=== PATIENT | female | born 1960 | race American Indian/Alaskan Native ===

== ENCOUNTER 2022-07-03 17:55 | Inpatient (IN) | payer MEDICAID ==
[2022-07-04 01:04] LABS: Basophils # (Auto) 0.1 K/mm3 (0.0-0.1); Basophils % (Auto) 0.5 % (0.0-1.8); Eosinophils # (Auto) 0.3 K/mm3 (0.0-0.4); Eosinophils % (Auto) 2.9 % (0.0-4.3); Hematocrit 31.1 % (30.3-42.9); Hemoglobin 10.3 gm/dl (10.1-14.3); Lymphocytes % (Auto) 20.8 % (13.4-35.0); Mean Corpuscular HGB Conc 33 % (30-34); Mean Corpuscular Volume 86 fl (79-97); Monocytes # (Auto) 1.1 K/mm3 (0.0-0.8); Monocytes % (Auto) 10.9 % (0.0-7.3); Platelet Count 261 K/mm3 (140-440); Red Blood Count 3.62 M/mm3 (3.65-5.03); Red Cell Distribution Width 15.2 % (13.2-15.2)
[2022-07-04 01:24] LABS: Hepatitis B Surface Antigen Non-Reactive (Negative); Hepatitis C Virus Antibody Non-Reactive (NonReactive)
[2022-07-04 02:24] LABS: Alanine Aminotransferase 9 units/L (7-56); Albumin 3.1 g/dL (3.9-5); Blood Urea Nitrogen 18 mg/dL (7-17); Calcium 8.6 mg/dL (8.4-10.2); HDL Cholesterol 58 mg/dL (40-59); Hemolysis Index 18; LDL Cholesterol,Direct 70 mg/dL (50-130)
[2022-07-04 02:28] LABS: BUN/Creatinine Ratio 26
--- NOTE | 2022-07-04 07:56 | History and Physical Report ---
GP History & Physical - History of Present Illness Date of admission: 07/03/22 Date of Examination: 07/04/22 Reason for Admission: Danger to self, Danger to others, Failure of Outpatient Treatment History of Present Illness: The patient is a 62 year old female with history of bipolar and schizophrenia who was admitted for stabilization. The patient presented to the ED with acute psychosis; the notes states that the patient was sent from [facility] due to psychosis and insomnia for several days with expression of suicidal thoughts. The patient was seen today. The patient presents with cognitive delay hence difficult to gather information. The patient was observed responding to internal stimuli. PAST PSYCHIATRIC HISTORY: Unable to assess PAST MEDICAL HISTORY: Unable to obtain Family Psychiatric History Unable to obtain SOCIAL HISTORY Unable to assess REVIEW OF SYSTEMS Unable to obtain MENTAL STATUS Unable to obtain Diagnoses: Schizophrenia Treatment Plan Patient will be admitted for inpatient psychiatric evaluation, medication adjustment and close monitoring The patient's behavior, mood, sleep and appetite will be closely monitored. Patient will be enrolled in individual and group therapeutic sessions and encouraged to attend. Patient will be provided with a safe and structured environment. Patient's physical health needs will be addressed by the Hospitalist. Hospitalist Consulted Labs including CBC, CMP, Lipid profile and Hemoglobin A1C ordered Social Assessment will be completed and the Air Conditioning Service Technician will work with patient and family to ensure a suitable and safe disposition Medication adjustment will be made as clinically indicated Restarted home meds Usual Wellness Nondenominational/Preservation: The patient agreed on the treatment plan, understood the risk, benefit, alternative treatment, potential consequence of no treatment, and gave informed consent. LOS 7 days Case staffed with Dr. Alex Legal Status: Voluntary Reaction to Hospitalization: Accepting Medications and Allergies Medications and Allergies Allergies Allergy/AdvReac Type Severity Reaction Status Date / Time lithium Allergy Unknown Verified 07/03/22 22:46 Home Medications Medication Instructions Recorded Confirmed Last Taken Type amLODIPine [Norvasc] 10 mg PO DAILY 08/25/13 07/04/22 Unknown History AtorvaSTATin [Lipitor] 10 mg PO QHS 07/04/22 07/04/22 Unknown History Benztropine [Cogentin] 2 mg PO DAILY 07/04/22 07/04/22 Unknown History Divalproex [Ray Aponte] 250 mg PO DAILY 07/04/22 07/04/22 Unknown History Divalproex [Ray Aponte] 500 mg PO HS 07/04/22 07/04/22 Unknown History Loratadine [Claritin] 10 mg PO DAILY 07/04/22 07/04/22 Unknown History Metoprolol Xl [Metoprolol 50 mg PO DAILY 07/04/22 07/04/22 Unknown History SUCCINATE ER TAB] PARoxetine [Paxil] 20 mg PO DAILY 07/04/22 07/04/22 Unknown History Pantoprazole [Protonix TAB] 40 mg PO DAILY 07/04/22 07/04/22 Unknown History Trazodone HCl 150 mg PO HS 07/04/22 07/04/22 Unknown History Ziprasidone [Geodon] 20 mg PO DAILY 07/04/22 07/04/22 Unknown History haloperidoL [Haldol] 2 mg PO BID 07/04/22 07/04/22 Unknown History lisinopriL [Lisinopril] 20 mg PO DAILY 07/04/22 07/04/22 Unknown History Results - Results Labs/Vitals: Laboratory Last Values WBC 9.7 K/mm3 (4.5-11.0) 07/04/22 00:27 RBC 3.62 M/mm3 (3.65-5.03) L 07/04/22 00:27 Hgb 10.3 gm/dl (10.1-14.3) 07/04/22 00:27 Hct 31.1 % (30.3-42.9) 07/04/22 00:27 MCV 86 fl (79-97) 07/04/22 00:27 MCH 28 pg (28-32) 07/04/22 00:27 MCHC 33 % (30-34) 07/04/22 00:27 RDW 15.2 % (13.2-15.2) 07/04/22 00:27 Plt Count 261 K/mm3 (140-440) 07/04/22 00:27 Lymph % (Auto) 20.8 % (13.4-35.0) 07/04/22 00:27 [place] % (Auto) 10.9 % (0.0-7.3) H 07/04/22 00:27 Eos % (Auto) 2.9 % (0.0-4.3) 07/04/22 00:27 Baso % (Auto) 0.5 % (0.0-1.8) 07/04/22 00:27 Lymph # (Auto) 2.0 K/mm3 (1.2-5.4) 07/04/22 00:27 [place] # (Auto) 1.1 K/mm3 (0.0-0.8) H 07/04/22 00:27 Eos # (Auto) 0.3 K/mm3 (0.0-0.4) 07/04/22 00:27 Baso # (Auto) 0.1 K/mm3 (0.0-0.1) 07/04/22 00:27 Seg Neutrophils % 64.9 % (40.0-70.0) 07/04/22 00: Seg Neutrophils # 6.3 K/mm3 (1.8-7.7) 07/04/22 00:27 Sodium 135 mmol/L (137-145) L 07/04/22 00:27 Potassium 4.3 mmol/L (3.6-5.0) 07/04/22 00: Chloride 100.1 mmol/L (98-107) 07/04/22 00: Carbon Dioxide 25 mmol/L (22-30) 07/04/22 00:27 Anion Gap 14 mmol/L 07/04/22 00:27 BUN 18 mg/dL (7-17) H 07/04/22 00:27 Creatinine 0.7 mg/dL (0.6-1.2) 07/04/22 00:27 Estimated GFR > 60 ml/min 07/04/22 00:27 BUN/Creatinine Ratio 26 % 07/04/22 00: Glucose 128 mg/dL (65-100) H 07/04/22 00:27 Hemoglobin A1c 6.2 % (4-6) H 07/04/22 00:27 Calcium 8.6 mg/dL (8.4-10.2) 07/04/22 00:27 Total Bilirubin 0.20 mg/dL (0.1-1.2) 07/04/22 00:27 AST 12 units/L (5-40) 07/04/22 00:27 ALT 9 units/L (7-56) 07/04/22 00:27 Alkaline Phosphatase 55 units/L (35-129) 07/04/22 00:27 Total Protein 6.0 g/dL (6.3-8.2) L 07/04/22 00:27 Albumin 3.1 g/dL (3.9-5) L 07/04/22 00:27 Albumin/Globulin Ratio 1.1 % 07/04/22 00:27 Triglycerides 53 mg/dL (2-149) 07/04/22 00:27 Cholesterol 145 mg/dL (50-199) 07/04/22 00:27 LDL Cholesterol Direct 70 mg/dL (50-130) 07/04/22 00:27 HDL Cholesterol 58 mg/dL (40-59) 07/04/22 00:27 Cholesterol/HDL Ratio 2.50 % 07/04/22 00:27 TSH 4.320 mlU/mL (0.270-4.200) H 07/04/22 00:27 Hepatitis A IgM Ab Non-reactive (NonReactive) 07/04/22 00: Hep Bs Antigen Non-reactive (Negative) 07/04/22 00: Hep B Core IgM Ab Non-reactive (NonReactive) 07/04/22 00:27 Hepatitis C Antibody Non-reactive (NonReactive) 07/04/22 00:27 Last Vital Signs Temp 97.5 F L 07/03/22 22:43 Pulse 63 07/03/22 22:43 Resp 18 07/03/22 22:43 BP 145/73 07/03/22 22:43 Pulse Ox 95 07/03/22 22:43 Physical Examination - Constitutional Vitals: Vital Signs Temp Pulse Resp BP Pulse Ox 97.5 F L 63 18 145/73 95 07/03/22 22:43 07/03/22 22:43 07/03/22 22:43 07/03/22 22:43 07/03/22 22:43 Temperature -Last 24 Hours Temperature 97.5 F Mental Status Exam - Vital signs Last Vital Signs Temp 97.5 F L 07/03/22 22:43 Pulse 63 07/03/22 22:43 Resp 18 07/03/22 22:43 BP 145/73 07/03/22 22:43 Pulse Ox 95 07/03/22 22:43 Physician Certification - Certification Statement Physician Certification Statement: This is an acknowledgement statement that ARETHA VIEYRA is a 62 year old F who requires inpatient psychiatric admission for treatment which could reasonably be expected to improve the patient's condition for Estimated period of time patient will need to remain in the hospital: [ ] Plan for post-hospital care: [ ]
[2022-07-04] MEDS ORDERED: LORATADINE 10 MG PO SCH (10:00)
--- NOTE | 2022-07-04 10:38 | Consultation ---
History of Present Illness - Reason for Consult Consult date: 07/03/22 [facility] Requesting physician: LAURI BELTRAN - History of Present Illness 62 YO Female with Vascular Dementia with behavioral disturbance, Cerebral Atherosclerosis, HTN, HLD, Obesity Hypoventilation Syndrome, GERD, Schizophrenia, Bipolar Disorder admitted to [facility] for psychiatric stabilization. Patient seen and evaluated in patient room. Patient denies fever, chills, chest pain, palpitation, adductive cough, skin rash and recent contact, no supportive COVID-19. Patient appears to be at baseline level of cognition and function. No reported nursing events. Past History Past Medical History: GERD, hypertension, hyperlipidemia, other (See HPI) Past Surgical History: No surgical history, Other (Reviewed) Social history: single. denies: smoking, alcohol abuse Family history: diabetes, hypertension Medications and Allergies Allergies Allergy/AdvReac Type Severity Reaction Status Date / Time lithium Allergy Unknown Verified 07/03/22 22:46 Home Medications Medication Instructions Recorded Confirmed Last Taken Type amLODIPine [Norvasc] 10 mg PO DAILY 08/25/13 07/04/22 Unknown History AtorvaSTATin [Lipitor] 10 mg PO QHS 07/04/22 07/04/22 Unknown History Benztropine [Cogentin] 2 mg PO DAILY 07/04/22 07/04/[address] Agusto Aponte] 250 mg PO DAILY 07/04/22 07/04/[address] Agusto Aponte] 500 mg PO HS 07/04/22 07/04/22 Unknown History Loratadine [Claritin] 10 mg PO DAILY 07/04/22 07/04/22 Unknown History Metoprolol Xl [Metoprolol 50 mg PO DAILY 07/04/22 07/04/22 Unknown History SUCCINATE ER TAB] PARoxetine [Paxil] 20 mg PO DAILY 07/04/22 07/04/22 Unknown History Pantoprazole [Protonix TAB] 40 mg PO DAILY 07/04/22 07/04/22 Unknown History Trazodone HCl 150 mg PO HS 07/04/22 07/04/22 Unknown History Ziprasidone [Geodon] 20 mg PO DAILY 07/04/22 07/04/22 Unknown History haloperidoL [Haldol] 2 mg PO BID 08/06/22 08/06/22 Unknown History lisinopriL [Lisinopril] 20 mg PO DAILY 07/04/22 07/04/22 Unknown History Active Meds: Active Medications Amlodipine Besylate (Amlodipine 10 Mg Tab) 10 mg PO DAILY [facility] Atorvastatin Calcium (Atorvastatin 10 Mg Tab) 10 mg PO QHS [facility] Benztropine Mesylate (Benztropine 2 Mg Tab) 2 mg PO DAILY [facility] Cetirizine HCl (Cetirizine 10 Mg Tab) 10 mg PO DAILY [facility] Divalproex Sodium (Divalproex Dr 250 Mg Tab) 250 mg PO DAILY [facility] Divalproex Sodium (Divalproex Dr 500 Mg Tab) 500 mg PO HS [facility] Haloperidol (Haloperidol 2 Mg Tab) 2 mg PO BID [facility] Lisinopril (Lisinopril 20 Mg Tab) 20 mg PO DAILY [facility] Pantoprazole Sodium (Pantoprazole 40 Mg Tab) 40 mg PO DAILY [facility] Paroxetine HCl (Paroxetine 20 Mg Tab) 20 mg PO DAILY [facility] Trazodone HCl (Trazodone 100 Mg Tab) 100 mg PO QHS [facility] Trazodone HCl (Trazodone 50 Mg Tab) 50 mg PO QHS [facility] Review of Systems Constitutional: no weight loss Ears, nose, mouth and throat: no ear pain, no ear discharge, no tinnitis, no d ecreased hearing, no nose pain Breasts: no change in shape, no swelling, no mass Cardiovascular: no chest pain, no orthopnea, no palpitations, no rapid/irregular heart beat, no edema Respiratory: no cough, no cough with sputum, no hemoptysis Gastrointestinal: no nausea, no constipation, no change in bowel habits Genitourinary Female: no dysuria, no urinary frequency, no urgency Rectal: no pain, no incontinence, no bleeding Musculoskeletal: no neck stiffness, no shooting arm pain, no arm numbness/tingling Integumentary: no rash, no pruritis, no redness Neurological: no head injury, no transient paralysis, no paralysis, no parathesias Psychiatric: difficulties concentrating, irritability, sadness/tearfullness, mood swings, no anxiety Endocrine: no cold intolerance, no heat intolerance, no polyphagia, no excessive thirst, no polydipsia, no polyuria Hematologic/Lymphatic: no easy bruising, no easy bleeding Allergic/Immunologic: no urticaria, no allergic rhinitis, no wheezing Exam - Constitutional Vitals: Temp Pulse Resp BP Pulse Ox 98.4 F 74 18 143/110 98 07/04/22 08:43 07/04/22 08:43 07/04/22 08:43 07/04/22 08:43 07/04/22 08:43 General appearance: Present: no acute distress, obese - EENT Eyes: Present: PERRL ENT: hearing intact, clear oral mucosa - Neck Neck: Present: supple, normal ROM - Respiratory Respiratory effort: normal Respiratory: bilateral: CTA - Cardiovascular Heart Sounds: Present: S1 & S2. Absent: rub, click - Extremities Extremities: pulses symmetrical, No edema Peripheral Pulses: within normal limits - Abdominal General gastrointestinal: Present: soft, non-tender, non-distended, normal bowel sounds Female genitourinary: Present: normal - Integumentary Integumentary: Present: clear, warm, dry - Musculoskeletal Musculoskeletal: gait normal, strength equal bilaterally - Psychiatric Psychiatric: appropriate mood/affect, intact judgment & insight - Neurologic Neurologic: CNII-XII intact, moves all extremities Results - Labs CBC & Chem 7: 07/04/22 00:27 07/04/22 00:27 Labs: Abnormal lab results 07/04/22 07/04/22 07/04/22 Range/Units 00:27 00:27 00:27 RBC 3.62 L (3.65-5.03) M/mm3 [place] % (Auto) 10.9 H (0.0-7.3) % [place] # (Auto) 1.1 H (0.0-0.8) K/mm3 Sodium 135 L (137-145) mmol/L BUN 18 H (7-17) mg/dL Glucose 128 H (65-100) mg/dL Hemoglobin A1c 6.2 H (4-6) % Total Protein 6.0 L (6.3-8.2) g/dL Albumin 3.1 L (3.9-5) g/dL TSH (0.270-4.200) mlU/mL 07/04/22 Range/Units 00:27 RBC (3.65-5.03) M/mm3 [place] % (Auto) (0.0-7.3) % [place] # (Auto) (0.0-0.8) K/mm3 Sodium (137-145) mmol/L BUN (7-17) mg/dL Glucose (65-100) mg/dL Hemoglobin A1c (4-6) % Total Protein (6.3-8.2) g/dL Albumin (3.9-5) g/dL TSH 4.320 H (0.270-4.200) mlU/mL Assessment and Plan - Patient Problems (1) Vascular dementia with behavioral disturbance Current Visit: Yes Status: Acute Plan to address problem: For vomiting, verbal redirection, benzodiazepine therapy as clinically indicated. (2) Cerebral atherosclerosis Current Visit: Yes Status: Acute Plan to address problem: Risk factor reduction, antiplatelet therapy as clinically indicated, supportive care (3) Hypertension Current Visit: Yes Status: Acute Qualifiers: Hypertension type: primary hypertension Qualified Code(s): I10 - Essential (primary) hypertension Plan to address problem: Monitor blood pressure every shift, continue medical management. (4) Hyperlipidemia Current Visit: Yes Status: Acute Qualifiers: Hyperlipidemia type: mixed hyperlipidemia Qualified Code(s): E78.2 - Mixed hyperlipidemia Plan to address problem: Statin therapy, low-cholesterol diet, risk factor reduction. (5) Obesity hypoventilation syndrome Current Visit: Yes Status: Acute Plan to address problem: Weight reduction, outpatient pulmonary follow-up for sleep study. (6) Bipolar disorder Current Visit: Yes Status: Acute Plan to address problem: Continue medical management, supportive care. (7) Schizophrenia Current Visit: Yes Status: Acute Plan to address problem: Continue medical management, supportive care. (8) Major depression Current Visit: Yes Status: Acute Plan to address problem: Continue medical management, supportive care. (9) Advance care planning Current Visit: Yes Status: Acute Plan to address problem: Disease education done, care plan discussed, diagnoses discussed, prognosis discussed, patient is full code. Patient knowledges understanding and agreement with care plan, +30 minutes. (10) Preventative health care Current Visit: Yes Status: Acute Plan to address problem: Patient counseled regarding weight reduction, increase physical activity discharge, outpatient follow-up with primary care physician for all age and risk factor appropriate screening test. Outpatient follow-up with FACTORY FOCUS TECHNICIAN service for all age and risk factor related screening test. +30 minutes.
[2022-07-04] MEDS: DIVALPROEX DR 250 MG TAB PO SCH (11:00)
[2022-07-04] MEDS: amLODIPine 10 MG TAB PO SCH (11:01)
[2022-07-04] MEDS: CETIRIZINE 10 MG TAB PO SCH (11:01)
[2022-07-04] MEDS: PANTOPRAZOLE 40 MG TAB PO SCH (11:01)
[2022-07-04] MEDS: HALOPERIDOL 2 MG TAB PO SCH ×2 (11:01→22:10)
[2022-07-04] MEDS: PARoxetine 20 MG TAB PO SCH (11:02)
[2022-07-04] MEDS: LISINOPRIL 20 MG TAB PO SCH (11:02)
[2022-07-04] MEDS: BENZTROPINE 2 MG TAB PO SCH (11:02)
[2022-07-04] MEDS ORDERED: NON-FORMULARY EACH (Trazodone Hcl [Trazodone Hcl] 150 MG Tablet) PO SCH (22:00)
[2022-07-04] MEDS: traZODone 100 MG TAB PO SCH (22:10)
[2022-07-04] MEDS: DIVALPROEX DR 500 MG TAB PO SCH (22:10)
[2022-07-04] MEDS: traZODone 50 MG TAB PO SCH (22:38)
[2022-07-05] MEDS: PARoxetine 20 MG TAB PO SCH (09:00)
[2022-07-05] MEDS: BENZTROPINE 2 MG TAB PO SCH (09:00)
[2022-07-05] MEDS: LISINOPRIL 20 MG TAB PO SCH (09:00)
[2022-07-05] MEDS: DIVALPROEX DR 250 MG TAB PO SCH (09:00)
[2022-07-05] MEDS: HALOPERIDOL 2 MG TAB PO SCH ×2 (09:00→21:47)
[2022-07-05] MEDS: PANTOPRAZOLE 40 MG TAB PO SCH (09:00)
[2022-07-05] MEDS: amLODIPine 10 MG TAB PO SCH (09:01)
[2022-07-05] MEDS: CETIRIZINE 10 MG TAB PO SCH (09:01)
--- NOTE | 2022-07-05 09:38 | Progress Note ---
Subjective Date of service: 07/05/22 Subjective Comment: 07/05: The patient was seen at breakfast. She is confused and was observed responding to internal stimuli. She reports sleep and appetite as good. REVIEW OF SYSTEMS Unable to obtain MENTAL STATUS Unable to obtain Diagnoses: Schizophrenia Treatment Plan Patient will be admitted for inpatient psychiatric evaluation, medication adjustment and close monitoring The patient's behavior, mood, sleep and appetite will be closely monitored. Patient will be enrolled in individual and group therapeutic sessions and encouraged to attend. Patient will be provided with a safe and structured environment. Patient's physical health needs will be addressed by the Hospitalist. Hospitalist Consulted Labs including CBC, CMP, Lipid profile and Hemoglobin A1C ordered Social Assessment will be completed and the Jukebox Checker will work with patient and family to ensure a suitable and safe disposition Medication adjustment will be made as clinically indicated Restarted home meds Usual Wellness Hoahaoism/Preservation: The patient agreed on the treatment plan, understood the risk, benefit, alternative treatment, potential consequence of no treatment, and gave informed consent. LOS 7 days Case staffed with Dr. Alex Legal Status: Voluntary Reaction to Hospitalization: Accepting Medications and Allergies Medications and Allergies Allergies Allergy/AdvReac Type Severity Reaction Status Date / Time lithium Allergy Unknown Verified 07/03/22 22:46 Home Medications Medication Instructions Recorded Confirmed Last Taken Type amLODIPine [Norvasc] 10 mg PO DAILY 08/25/13 07/04/22 Unknown History AtorvaSTATin [Lipitor] 10 mg PO QHS 07/04/22 07/04/22 Unknown History Benztropine [Cogentin] 2 mg PO DAILY 07/04/22 07/04/[address] Agusto Aponte] 250 mg PO DAILY 07/04/22 07/04/[address] Agusto Aponte] 500 mg PO HS 07/04/22 07/04/22 Unknown History Loratadine [Claritin] 10 mg PO DAILY 07/04/22 07/04/22 Unknown History Metoprolol Xl [Metoprolol 50 mg PO DAILY 07/04/22 07/04/22 Unknown History SUCCINATE ER TAB] PARoxetine [Paxil] 20 mg PO DAILY 07/04/22 07/04/22 Unknown History Pantoprazole [Protonix TAB] 40 mg PO DAILY 07/04/22 07/04/22 Unknown History Trazodone HCl 150 mg PO HS 07/04/22 07/04/22 Unknown History Ziprasidone [Geodon] 20 mg PO DAILY 07/04/22 07/04/22 Unknown History haloperidoL [Haldol] 2 mg PO BID 07/04/22 07/04/22 Unknown History lisinopriL [Lisinopril] 20 mg PO DAILY 07/04/22 07/04/22 Unknown History Active Meds: Active Medications Amlodipine Besylate (Amlodipine 10 Mg Tab) 10 mg PO DAILY [facility] Last Admin: 07/05/22 09:01 Dose: 10 mg Atorvastatin Calcium (Atorvastatin 10 Mg Tab) 10 mg PO QHS [facility] Last Admin: 07/04/22 22:10 Dose: 10 mg Benztropine Mesylate (Benztropine 2 Mg Tab) 2 mg PO DAILY [facility] Last Admin: 07/05/22 09:00 Dose: 2 mg Cetirizine HCl (Cetirizine 10 Mg Tab) 10 mg PO DAILY [facility] Last Admin: 07/05/22 09:01 Dose: 10 mg Divalproex Sodium (Divalproex Dr 250 Mg Tab) 250 mg PO DAILY [facility] Last Admin: 07/05/22 09:00 Dose: 250 mg Divalproex Sodium (Divalproex Dr 500 Mg Tab) 500 mg PO [facility] Last Admin: 07/04/22 22:10 Dose: 500 mg Haloperidol (Haloperidol 2 Mg Tab) 2 mg PO BID [facility] Last Admin: 07/05/22 09:00 Dose: 2 mg Lisinopril (Lisinopril 20 Mg Tab) 20 mg PO DAILY [facility] Last Admin: 07/05/22 09:00 Dose: 20 mg Pantoprazole Sodium (Pantoprazole 40 Mg Tab) 40 mg PO DAILY [facility] Last Admin: 07/05/22 09:00 Dose: 40 mg Paroxetine HCl (Paroxetine 20 Mg Tab) 20 mg PO DAILY [facility] Last Admin: 07/05/22 09:00 Dose: 20 mg Trazodone HCl (Trazodone 100 Mg Tab) 100 mg PO QHS [facility] Last Admin: 07/04/22 22:10 Dose: 100 mg Trazodone HCl (Trazodone 50 Mg Tab) 50 mg PO QHS [facility] Last Admin: 07/04/22 22:38 Dose: 50 mg Results - Results Labs/Vitals: Laboratory Last Values WBC 9.7 K/mm3 (4.5-11.0) 07/04/22 00:27 RBC 3.62 M/mm3 (3.65-5.03) L 07/04/22 00:27 Hgb 10.3 gm/dl (10.1-14.3) 07/04/22 00: Hct 31.1 % (30.3-42.9) 07/04/22 00: MCV 86 fl (79-97) 07/04/22 00: MCH 28 pg (28-32) 07/04/22 00: MCHC 33 % (30-34) 07/04/22 00: RDW 15.2 % (13.2-15.2) 07/04/22 00: Plt Count 261 K/mm3 (140-440) 07/04/22 00: Lymph % (Auto) 20.8 % (13.4-35.0) 07/04/22 00:27 [place] % (Auto) 10.9 % (0.0-7.3) H 07/04/22 00:27 Eos % (Auto) 2.9 % (0.0-4.3) 07/04/22 00:27 Baso % (Auto) 0.5 % (0.0-1.8) 07/04/22 00: Lymph # (Auto) 2.0 K/mm3 (1.2-5.4) 07/04/22 00:27 [place] # (Auto) 1.1 K/mm3 (0.0-0.8) H 07/04/22 00:27 Eos # (Auto) 0.3 K/mm3 (0.0-0.4) 07/04/22 00:27 Baso # (Auto) 0.1 K/mm3 (0.0-0.1) 07/04/22 00:27 Seg Neutrophils % 64.9 % (40.0-70.0) 07/04/22 00: Seg Neutrophils # 6.3 K/mm3 (1.8-7.7) 07/04/22 00:27 Sodium 135 mmol/L (137-145) L 07/04/22 00: Potassium 4.3 mmol/L (3.6-5.0) 07/04/22 00: Chloride 100.1 mmol/L (98-107) 07/04/22 00: Carbon Dioxide 25 mmol/L (22-30) 07/04/22 00:27 Anion Gap 14 mmol/L 07/04/22 00:27 BUN 18 mg/dL (7-17) H 07/04/22 00:27 Creatinine 0.7 mg/dL (0.6-1.2) 07/04/22 00: Estimated GFR > 60 ml/min 07/04/22 00: BUN/Creatinine Ratio 26 % 07/04/22: Glucose 128 mg/dL (65-100) H 07/04/22 00:27 Hemoglobin A1c 6.2 % (4-6) H 07/04/22 00:27 Calcium 8.6 mg/dL (8.4-10.2) 07/04/22 00: Total Bilirubin 0.20 mg/dL (0.1-1.2) 07/04/22 00: AST 12 units/L (5-40) 07/04/22: ALT 9 units/L (7-56) 07/04/22 00: Alkaline Phosphatase 55 units/L (35-129) 07/04/22 00:27 Total Protein 6.0 g/dL (6.3-8.2) L 07/04/22 00: Albumin 3.1 g/dL (3.9-5) L 07/04/22 00: Albumin/Globulin Ratio 1.1 % 07/04/22 00: Triglycerides 53 mg/dL (2-149) 07/04/22 00: Cholesterol 145 mg/dL (50-199) 07/04/22 00: LDL Cholesterol Direct 70 mg/dL (50-130) 07/04/22 00:27 HDL Cholesterol 58 mg/dL (40-59) 07/04/22 00: Cholesterol/HDL Ratio 2.50 % 07/04/22: TSH 4.320 mlU/mL (0.270-4.200) H 07/04/22 00:27 Hepatitis A IgM Ab Non-reactive (NonReactive) 07/04/22 00: Hep Bs Antigen Non-reactive (Negative) 07/04/22: Hep B Core IgM Ab Non-reactive (NonReactive) 07/04/22: Hepatitis C Antibody Non-reactive (NonReactive) 07/04/22 00:27 Last Vital Signs Temp 97.4 F L 07/05/22 09:03 Pulse 92 H 07/05/22 09:03 Resp 18 07/05/22 09:03 BP 158/85 07/05/22 09:03 Pulse Ox 99 07/05/22 09:03
--- NOTE | 2022-07-05 14:39 | Progress Note ---
Assessment and Plan - Patient Problems (1) Vascular dementia with behavioral disturbance Current Visit: Yes Status: Acute Plan to address problem: For vomiting, verbal redirection, benzodiazepine therapy as clinically indicated. (2) Cerebral atherosclerosis Current Visit: Yes Status: Acute Plan to address problem: Risk factor reduction, antiplatelet therapy as clinically indicated, supportive care (3) Hypertension Current Visit: Yes Status: Acute Qualifiers: Hypertension type: primary hypertension Qualified Code(s): I10 - Essential (primary) hypertension Plan to address problem: Monitor blood pressure every shift, continue medical management. (4) Hyperlipidemia Current Visit: Yes Status: Acute Qualifiers: Hyperlipidemia type: mixed hyperlipidemia Qualified Code(s): E78.2 - Mixed hyperlipidemia Plan to address problem: Statin therapy, low-cholesterol diet, risk factor reduction. (5) Obesity hypoventilation syndrome Current Visit: Yes Status: Acute Plan to address problem: Weight reduction, outpatient pulmonary follow-up for sleep study. (6) Bipolar disorder Current Visit: Yes Status: Acute Plan to address problem: Continue medical management, supportive care. (7) Schizophrenia Current Visit: Yes Status: Acute Plan to address problem: Continue medical management, supportive care. (8) Major depression Current Visit: Yes Status: Acute Plan to address problem: Continue medical management, supportive care. (9) Advance care planning Current Visit: Yes Status: Acute Plan to address problem: Disease education done, care plan discussed, diagnoses discussed, prognosis discussed, patient is full code. Patient knowledges understanding and agreement with care plan, +30 minutes. (10) Preventative health care Current Visit: Yes Status: Acute Plan to address problem: Patient counseled regarding weight reduction, increase physical activity discharge, outpatient follow-up with primary care physician for all age and risk factor appropriate screening test. Outpatient follow-up with [employer] service for all age and risk factor related screening test. +30 minutes. History Interval history: 62 YO Female with Vascular Dementia with behavioral disturbance, Cerebral Atherosclerosis, HTN, HLD, Obesity Hypoventilation Syndrome, GERD, Schizophrenia, Bipolar Disorder admitted to [facility] for psychiatric stabilization. Patient seen and evaluated in patient room. Patient appears to be at baseline level of cognition and function. No reported nursing events. Hospitalist Physical - Constitutional Vitals: Temp Pulse Resp BP Pulse Ox 97.4 F L 92 H 18 158/85 99 07/05/22 09:03 07/05/22 09:03 07/05/22 09:03 07/05/22 09:03 07/05/22 09:03 General appearance: Present: no acute distress, obese - EENT Eyes: Present: PERRL ENT: hearing intact - Neck Neck: Present: supple - Respiratory Respiratory effort: normal Respiratory: bilateral: CTA - Cardiovascular Rhythm: regular Heart Sounds: Present: S1 & S2 Peripheral Pulses: within normal limits - Abdominal General gastrointestinal: soft, non-tender, non-distended - Integumentary Integumentary: Present: clear, dry - Psychiatric Psychiatric: cooperative - Neurologic Neurologic: CNII-XII intact Results - Labs CBC & Chem 7: 07/04/22 00:27 07/04/22 00:27 Labs: Laboratory Last Values WBC 9.7 K/mm3 (4.5-11.0) 07/04/22 00:27 RBC 3.62 M/mm3 (3.65-5.03) L 07/04/22 00:27 Hgb 10.3 gm/dl (10.1-14.3) 07/04/22 00:27 Hct 31.1 % (30.3-42.9) 07/04/22 00:27 MCV 86 fl (79-97) 07/04/22 00:27 MCH 28 pg (28-32) 07/04/22 00: MCHC 33 % (30-34) 07/04/22 00:27 RDW 15.2 % (13.2-15.2) 07/04/22 00:27 Plt Count 261 K/mm3 (140-440) 07/04/22 00:27 Lymph % (Auto) 20.8 % (13.4-35.0) 07/04/22 00:27 [place] % (Auto) 10.9 % (0.0-7.3) H 07/04/22 00:27 Eos % (Auto) 2.9 % (0.0-4.3) 07/04/22 00:27 Baso % (Auto) 0.5 % (0.0-1.8) 07/04/22 00:27 Lymph # (Auto) 2.0 K/mm3 (1.2-5.4) 07/04/22 00:27 [place] # (Auto) 1.1 K/mm3 (0.0-0.8) H 07/04/22 00:27 Eos # (Auto) 0.3 K/mm3 (0.0-0.4) 07/04/22 00:27 Baso # (Auto) 0.1 K/mm3 (0.0-0.1) 07/04/22 00:27 Seg Neutrophils % 64.9 % (40.0-70.0) 07/04/22 00: Seg Neutrophils # 6.3 K/mm3 (1.8-7.7) 07/04/22 00:27 Sodium 135 mmol/L (137-145) L 07/04/22 00:27 Potassium 4.3 mmol/L (3.6-5.0) 07/04/22 00: Chloride 100.1 mmol/L (98-107) 07/04/22 00: Carbon Dioxide 25 mmol/L (22-30) 07/04/22 00: Anion Gap 14 mmol/L 07/04/22 00: BUN 18 mg/dL (7-17) H 07/04/22 00: Creatinine 0.7 mg/dL (0.6-1.2) 07/04/22 00: Estimated GFR > 60 ml/min 07/04/22 00: BUN/Creatinine Ratio 26 % 07/04/22 00: Glucose 128 mg/dL (65-100) H 07/04/22 00: Hemoglobin A1c 6.2 % (4-6) H 07/04/22 00: Calcium 8.6 mg/dL (8.4-10.2) 07/04/22 00: Total Bilirubin 0.20 mg/dL (0.1-1.2) 07/04/22 00: AST 12 units/L (5-40) 07/04/22 00:27 ALT 9 units/L (7-56) 07/04/22 00:27 Alkaline Phosphatase 55 units/L (35-129) 07/04/22 00: Total Protein 6.0 g/dL (6.3-8.2) L 07/04/22 00:27 Albumin 3.1 g/dL (3.9-5) L 07/04/22 00:27 Albumin/Globulin Ratio 1.1 % 07/04/22 00: Triglycerides 53 mg/dL (2-149) 07/04/22 00:27 Cholesterol 145 mg/dL (50-199) 07/04/22 00:27 LDL Cholesterol Direct 70 mg/dL (50-130) 07/04/22 00:27 HDL Cholesterol 58 mg/dL (40-59) 07/04/22 00:27 Cholesterol/HDL Ratio 2.50 % 07/04/22 00:27 TSH 4.320 mlU/mL (0.270-4.200) H 07/04/22 00:27 Hepatitis A IgM Ab Non-reactive (NonReactive) 07/04/22 00:27 Hep Bs Antigen Non-reactive (Negative) 07/04/22 00:27 Hep B Core IgM Ab Non-reactive (NonReactive) 07/04/22 00:27 Hepatitis C Antibody Non-reactive (NonReactive) 07/04/22 00:27 [place]/IV: Voiding Method Toilet Active Medications - Current Medications Current Medications: Generic Name Dose Route Start Last Admin Trade Name Freq PRN Reason Stop Dose Admin Amlodipine Besylate 10 mg 07/04/22 10:00 07/05/22 09:01 Amlodipine 10 Mg Tab PO 10 mg DAILY MARIA INES Administration Atorvastatin Calcium 10 mg 07/04/22 22:00 07/04/22 22:10 Atorvastatin 10 Mg Tab PO 10 mg QHS MARIA INES Administration Benztropine Mesylate 2 mg 07/04/22 10:00 07/05/22 09:00 Benztropine 2 Mg Tab PO 2 mg DAILY MARIA INES Administration Cetirizine HCl 10 mg 07/04/22 10:00 07/05/22 09:01 Cetirizine 10 Mg Tab PO 10 mg DAILY MARIA INES Administration Divalproex Sodium 250 mg 07/04/22 10:00 07/05/22 09:[address] 250 Mg Tab PO 250 mg DAILY MARIA INES Administration Divalproex Sodium 500 mg 07/04/22 22:00 07/04/22 22:[address] 500 Mg Tab PO 500 mg HS MARIA INES Administration Haloperidol 2 mg 07/04/22 10:00 07/05/22 09:00 Haloperidol 2 Mg Tab PO 2 mg BID MARIA INES Administration Lisinopril 20 mg 07/04/22 10:00 07/05/22 09:00 Lisinopril 20 Mg Tab PO 20 mg DAILY MARIA INES Administration Pantoprazole Sodium 40 mg 07/04/22 10:00 07/05/22 09:00 Pantoprazole 40 Mg Tab PO 40 mg DAILY MARIA INES Administration Paroxetine HCl 20 mg 07/04/22 10:00 07/05/22 09:00 Paroxetine 20 Mg Tab PO 20 mg DAILY MARIA INES Administration Trazodone HCl 100 mg 07/04/22 22:00 07/04/22 22:10 Trazodone 100 Mg Tab PO 100 mg QHS MARIA INES Administration Trazodone HCl 50 mg 07/04/22 22:00 07/04/22 22:38 Trazodone 50 Mg Tab PO 50 mg QHS MARIA INES Administration
--- NOTE | 2022-07-05 14:40 | Progress Note ---
Assessment and Plan - Patient Problems (1) Vascular dementia with behavioral disturbance Current Visit: Yes Status: Acute Plan to address problem: For vomiting, verbal redirection, benzodiazepine therapy as clinically indicated. (2) Cerebral atherosclerosis Current Visit: Yes Status: Acute Plan to address problem: Risk factor reduction, antiplatelet therapy as clinically indicated, supportive care (3) Hypertension Current Visit: Yes Status: Acute Qualifiers: Hypertension type: primary hypertension Qualified Code(s): I10 - Essential (primary) hypertension Plan to address problem: Monitor blood pressure every shift, continue medical management. (4) Hyperlipidemia Current Visit: Yes Status: Acute Qualifiers: Hyperlipidemia type: mixed hyperlipidemia Qualified Code(s): E78.2 - Mixed hyperlipidemia Plan to address problem: Statin therapy, low-cholesterol diet, risk factor reduction. (5) Obesity hypoventilation syndrome Current Visit: Yes Status: Acute Plan to address problem: Weight reduction, outpatient pulmonary follow-up for sleep study. (6) Bipolar disorder Current Visit: Yes Status: Acute Plan to address problem: Continue medical management, supportive care. (7) Schizophrenia Current Visit: Yes Status: Acute Plan to address problem: Continue medical management, supportive care. (8) Major depression Current Visit: Yes Status: Acute Plan to address problem: Continue medical management, supportive care. (9) Advance care planning Current Visit: Yes Status: Acute Plan to address problem: Disease education done, care plan discussed, diagnoses discussed, prognosis discussed, patient is full code. Patient knowledges understanding and agreement with care plan, +30 minutes. (10) Preventative health care Current Visit: Yes Status: Acute Plan to address problem: Patient counseled regarding weight reduction, increase physical activity discharge, outpatient follow-up with primary care physician for all age and risk factor appropriate screening test. Outpatient follow-up with [employer] service for all age and risk factor related screening test. +30 minutes. History Interval history: 62 YO Female with Vascular Dementia with behavioral disturbance, Cerebral Atherosclerosis, HTN, HLD, Obesity Hypoventilation Syndrome, GERD, Schizophrenia, Bipolar Disorder admitted to [facility] for psychiatric stabilization. Patient seen and evaluated in patient room. Patient appears to be at baseline level of cognition and function. No reported nursing events. Hospitalist Physical - Constitutional Vitals: Temp Pulse Resp BP Pulse Ox 97.4 F L 92 H 18 158/85 99 07/05/22 09:03 07/05/22 09:03 07/05/22 09:03 07/05/22 09:03 07/05/22 09:03 General appearance: Present: no acute distress, obese - EENT Eyes: Present: PERRL ENT: hearing intact - Neck Neck: Present: supple - Respiratory Respiratory effort: normal Respiratory: bilateral: diminished - Cardiovascular Rhythm: regular Heart Sounds: Present: S1 & S2 - Extremities Extremities: no ischemia Peripheral Pulses: within normal limits - Abdominal General gastrointestinal: soft, non-tender, non-distended - Integumentary Integumentary: Present: clear, dry - Psychiatric Psychiatric: cooperative - Neurologic Neurologic: CNII-XII intact Results - Labs CBC & Chem 7: 07/04/22 00:27 07/04/22 00:27 Labs: Laboratory Last Values WBC 9.7 K/mm3 (4.5-11.0) 07/04/22 00:27 RBC 3.62 M/mm3 (3.65-5.03) L 07/04/22 00:27 Hgb 10.3 gm/dl (10.1-14.3) 07/04/22 00:27 Hct 31.1 % (30.3-42.9) 07/04/22 00:27 MCV 86 fl (79-97) 07/04/22 00:27 MCH 28 pg (28-32) 07/04/22 00:27 MCHC 33 % (30-34) 07/04/22 00:27 RDW 15.2 % (13.2-15.2) 07/04/22 00:27 Plt Count 261 K/mm3 (140-440) 07/04/22 00:27 Lymph % (Auto) 20.8 % (13.4-35.0) 07/04/22 00:27 [place] % (Auto) 10.9 % (0.0-7.3) H 07/04/22 00:27 Eos % (Auto) 2.9 % (0.0-4.3) 07/04/22 00:27 Baso % (Auto) 0.5 % (0.0-1.8) 07/04/22 00:27 Lymph # (Auto) 2.0 K/mm3 (1.2-5.4) 07/04/22 00:27 [place] # (Auto) 1.1 K/mm3 (0.0-0.8) H 07/04/22 00:27 Eos # (Auto) 0.3 K/mm3 (0.0-0.4) 07/04/22 00:27 Baso # (Auto) 0.1 K/mm3 (0.0-0.1) 07/04/22 00:27 Seg Neutrophils % 64.9 % (40.0-70.0) 07/04/22 00: Seg Neutrophils # 6.3 K/mm3 (1.8-7.7) 07/04/22 00:27 Sodium 135 mmol/L (137-145) L 07/04/22 00:27 Potassium 4.3 mmol/L (3.6-5.0) 07/04/22 00:27 Chloride 100.1 mmol/L (98-107) 07/04/22 00: Carbon Dioxide 25 mmol/L (22-30) 07/04/22 00:27 Anion Gap 14 mmol/L 07/04/22 00:27 BUN 18 mg/dL (7-17) H 07/04/22 00:27 Creatinine 0.7 mg/dL (0.6-1.2) 07/04/22 00:27 Estimated GFR > 60 ml/min 07/04/22 00:27 BUN/Creatinine Ratio 26 % 07/04/22 00: Glucose 128 mg/dL (65-100) H 07/04/22 00:27 Hemoglobin A1c 6.2 % (4-6) H 07/04/22 00:27 Calcium 8.6 mg/dL (8.4-10.2) 07/04/22 00:27 Total Bilirubin 0.20 mg/dL (0.1-1.2) 07/04/22 00:27 AST 12 units/L (5-40) 07/04/22 00:27 ALT 9 units/L (7-56) 07/04/22 00:27 Alkaline Phosphatase 55 units/L (35-129) 07/04/22 00:27 Total Protein 6.0 g/dL (6.3-8.2) L 07/04/22 00:27 Albumin 3.1 g/dL (3.9-5) L 07/04/22 00:27 Albumin/Globulin Ratio 1.1 % 07/04/22 00:27 Triglycerides 53 mg/dL (2-149) 07/04/22 00:27 Cholesterol 145 mg/dL (50-199) 07/04/22 00:27 LDL Cholesterol Direct 70 mg/dL (50-130) 07/04/22 00:27 HDL Cholesterol 58 mg/dL (40-59) 07/04/22 00:27 Cholesterol/HDL Ratio 2.50 % 07/04/22 00:27 TSH 4.320 mlU/mL (0.270-4.200) H 07/04/22 00:27 Hepatitis A IgM Ab Non-reactive (NonReactive) 07/04/22 00:27 Hep Bs Antigen Non-reactive (Negative) 07/04/22 00:27 Hep B Core IgM Ab Non-reactive (NonReactive) 07/04/22 00:27 Hepatitis C Antibody Non-reactive (NonReactive) 07/04/22 00:27 [place]/IV: Voiding Method Toilet Active Medications - Current Medications Current Medications: Generic Name Dose Route Start Last Admin Trade Name Freq PRN Reason Stop Dose Admin Amlodipine Besylate 10 mg 07/04/22 10:00 07/05/22 09:01 Amlodipine 10 Mg Tab PO 10 mg DAILY MARIA INES Administration Atorvastatin Calcium 10 mg 07/04/22 22:00 07/04/22 22:10 Atorvastatin 10 Mg Tab PO 10 mg QHS MARIA INES Administration Benztropine Mesylate 2 mg 07/04/22 10:00 07/05/22 09:00 Benztropine 2 Mg Tab PO 2 mg DAILY MARIA INES Administration Cetirizine HCl 10 mg 07/04/22 10:00 07/05/22 09:01 Cetirizine 10 Mg Tab PO 10 mg DAILY MARIA INES Administration Divalproex Sodium 250 mg 07/04/22 10:00 07/05/22 09:[address] 250 Mg Tab PO 250 mg DAILY MARIA INES Administration Divalproex Sodium 500 mg 07/04/22 22:00 07/04/22 22:[address] 500 Mg Tab PO 500 mg HS MARIA INES Administration Haloperidol 2 mg 07/04/22 10:00 07/05/22 09:00 Haloperidol 2 Mg Tab PO 2 mg BID MARIA INES Administration Lisinopril 20 mg 07/04/22 10:00 07/05/22 09:00 Lisinopril 20 Mg Tab PO 20 mg DAILY MARIA INES Administration Pantoprazole Sodium 40 mg 07/04/22 10:00 07/05/22 09:00 Pantoprazole 40 Mg Tab PO 40 mg DAILY MARIA INES Administration Paroxetine HCl 20 mg 07/04/22 10:00 07/05/22 09:00 Paroxetine 20 Mg Tab PO 20 mg DAILY MARIA INES Administration Trazodone HCl 100 mg 07/04/22 22:00 07/04/22 22:10 Trazodone 100 Mg Tab PO 100 mg QHS MARIA INES Administration Trazodone HCl 50 mg 07/04/22 22:00 07/04/22 22:38 Trazodone 50 Mg Tab PO 50 mg QHS MARIA INES Administration
[2022-07-05] MEDS: traZODone 50 MG TAB PO SCH (21:47)
[2022-07-05] MEDS: DIVALPROEX DR 500 MG TAB PO SCH (21:47)
[2022-07-05] MEDS: traZODone 100 MG TAB PO SCH (21:47)
[2022-07-06] MEDS: PANTOPRAZOLE 40 MG TAB PO SCH (08:59)
[2022-07-06] MEDS: CETIRIZINE 10 MG TAB PO SCH (08:59)
[2022-07-06] MEDS: BENZTROPINE 2 MG TAB PO SCH (09:00)
[2022-07-06] MEDS: HALOPERIDOL 2 MG TAB PO SCH ×2 (09:00→21:03)
[2022-07-06] MEDS: DIVALPROEX DR 250 MG TAB PO SCH (09:00)
[2022-07-06] MEDS: PARoxetine 20 MG TAB PO SCH (09:00)
--- NOTE | 2022-07-06 09:54 | Progress Note ---
Subjective Date of service: 07/06/22 Subjective Comment: 07/06: The patient was seen today. She continues to have intermittent outbursts and responding to internal stimuli. She states she is doing well. Unable to assess SI/HI 07/05: The patient was seen at breakfast. She is confused and was observed responding to internal stimuli. She reports sleep and appetite as good. REVIEW OF SYSTEMS Unable to obtain MENTAL STATUS Unable to obtain Diagnoses: Schizophrenia Treatment Plan Patient will be admitted for inpatient psychiatric evaluation, medication adjustment and close monitoring The patient's behavior, mood, sleep and appetite will be closely monitored. Patient will be enrolled in individual and group therapeutic sessions and encouraged to attend. Patient will be provided with a safe and structured environment. Patient's physical health needs will be addressed by the Hospitalist. Hospitalist Consulted Labs including CBC, CMP, Lipid profile and Hemoglobin A1C ordered Social Assessment will be completed and the [employer] will work with patient and family to ensure a suitable and safe disposition Medication adjustment will be made as clinically indicated Restarted home meds Usual Wellness Gnosticism/Preservation: The patient agreed on the treatment plan, understood the risk, benefit, alternative treatment, potential consequence of no treatment, and gave informed consent. LOS 7 days Case staffed with Dr. Alex Legal Status: Voluntary Reaction to Hospitalization: Accepting Medications and Allergies Medications and Allergies Allergies Allergy/AdvReac Type Severity Reaction Status Date / Time lithium Allergy Unknown Verified 07/03/22 22:46 Home Medications Medication Instructions Recorded Confirmed Last Taken Type amLODIPine [Norvasc] 10 mg PO DAILY 08/25/13 07/04/22 Unknown History AtorvaSTATin [Lipitor] 10 mg PO QHS 07/04/22 07/04/22 Unknown History Benztropine [Cogentin] 2 mg PO DAILY 07/04/22 07/04/22 Unknown History Divalproex [Ray [place]] 250 mg PO DAILY 07/04/22 07/04/22 Unknown History Divalproex [Ray [place]] 500 mg PO HS 07/04/22 07/04/22 Unknown History Loratadine [Claritin] 10 mg PO DAILY 07/04/22 07/04/22 Unknown History Metoprolol Xl [Metoprolol 50 mg PO DAILY 07/04/22 07/04/22 Unknown History SUCCINATE ER TAB] PARoxetine [Paxil] 20 mg PO DAILY 07/04/22 07/04/22 Unknown History Pantoprazole [Protonix TAB] 40 mg PO DAILY 07/04/22 07/04/22 Unknown History Trazodone HCl 150 mg PO HS 07/04/22 07/04/22 Unknown History Ziprasidone [Geodon] 20 mg PO DAILY 07/04/22 07/04/22 Unknown History haloperidoL [Haldol] 2 mg PO BID 07/04/22 07/04/22 Unknown History lisinopriL [Lisinopril] 20 mg PO DAILY 07/04/22 07/04/22 Unknown History Active Meds: Active Medications Amlodipine Besylate (Amlodipine 10 Mg Tab) 10 mg PO DAILY [facility] Last Admin: 07/05/22 09:01 Dose: 10 mg Atorvastatin Calcium (Atorvastatin 10 Mg Tab) 10 mg PO QHS [facility] Last Admin: 07/05/22 21:47 Dose: 10 mg Benztropine Mesylate (Benztropine 2 Mg Tab) 2 mg PO DAILY [facility] Last Admin: 07/06/22 09:00 Dose: 2 mg Cetirizine HCl (Cetirizine 10 Mg Tab) 10 mg PO DAILY [facility] Last Admin: 07/06/22 08:59 Dose: 10 mg Divalproex Sodium (Divalproex Dr 250 Mg Tab) 250 mg PO DAILY [facility] Last Admin: 07/06/22 09:00 Dose: 250 mg Divalproex Sodium (Divalproex Dr 500 Mg Tab) 500 mg PO [facility] Last Admin: 07/05/22 21:47 Dose: 500 mg Haloperidol (Haloperidol 2 Mg Tab) 2 mg PO BID [facility] Last Admin: 07/06/22 09:00 Dose: 2 mg Lisinopril (Lisinopril 20 Mg Tab) 20 mg PO DAILY [facility] Last Admin: 07/05/22 09:00 Dose: 20 mg Pantoprazole Sodium (Pantoprazole 40 Mg Tab) 40 mg PO DAILY [facility] Last Admin: 07/06/22 08:59 Dose: 40 mg Paroxetine HCl (Paroxetine 20 Mg Tab) 20 mg PO DAILY [facility] Last Admin: 07/06/22 09:00 Dose: 20 mg Trazodone HCl (Trazodone 100 Mg Tab) 100 mg PO QHS [facility] Last Admin: 07/05/22 21:47 Dose: 100 mg Trazodone HCl (Trazodone 50 Mg Tab) 50 mg PO QHS [facility] Last Admin: 07/05/22 21:47 Dose: 50 mg Results - Results Labs/Vitals: Laboratory Last Values WBC 9.7 K/mm3 (4.5-11.0) 07/04/22 00:27 RBC 3.62 M/mm3 (3.65-5.03) L 07/04/22 00:27 Hgb 10.3 gm/dl (10.1-14.3) 07/04/22 00:27 Hct 31.1 % (30.3-42.9) 07/04/22 00:27 MCV 86 fl (79-97) 07/04/22 00:27 MCH 28 pg (28-32) 07/04/22 00:27 MCHC 33 % (30-34) 07/04/22 00:27 RDW 15.2 % (13.2-15.2) 07/04/22 00:27 Plt Count 261 K/mm3 (140-440) 07/04/22 00:27 Lymph % (Auto) 20.8 % (13.4-35.0) 07/04/22 00:27 [place] % (Auto) 10.9 % (0.0-7.3) H 07/04/22 00:27 Eos % (Auto) 2.9 % (0.0-4.3) 07/04/22 00:27 Baso % (Auto) 0.5 % (0.0-1.8) 07/04/22 00:27 Lymph # (Auto) 2.0 K/mm3 (1.2-5.4) 07/04/22 00:27 [place] # (Auto) 1.1 K/mm3 (0.0-0.8) H 07/04/22 00:27 Eos # (Auto) 0.3 K/mm3 (0.0-0.4) 07/04/22 00:27 Baso # (Auto) 0.1 K/mm3 (0.0-0.1) 07/04/22 00:27 Seg Neutrophils % 64.9 % (40.0-70.0) 07/04/22 00:27 Seg Neutrophils # 6.3 K/mm3 (1.8-7.7) 07/04/22 00:27 Sodium 135 mmol/L (137-145) L 07/04/22 00:27 Potassium 4.3 mmol/L (3.6-5.0) 07/04/22 00: Chloride 100.1 mmol/L (98-107) 07/04/22 00: Carbon Dioxide 25 mmol/L (22-30) 07/04/22 00: Anion Gap 14 mmol/L 07/04/22 00:27 BUN 18 mg/dL (7-17) H 07/04/22 00: Creatinine 0.7 mg/dL (0.6-1.2) 07/04/22 00: Estimated GFR > 60 ml/min 07/04/22 00: BUN/Creatinine Ratio 26 % 07/04/22: Glucose 128 mg/dL (65-100) H 07/04/22 00: Hemoglobin A1c 6.2 % (4-6) H 07/04/22 00: Calcium 8.6 mg/dL (8.4-10.2) 07/04/22 00: Total Bilirubin 0.20 mg/dL (0.1-1.2) 07/04/22 00: AST 12 units/L (5-40) 07/04/22 00: ALT 9 units/L (7-56) 07/04/22 00: Alkaline Phosphatase 55 units/L (35-129) 07/04/22 00: Total Protein 6.0 g/dL (6.3-8.2) L 07/04/22 00: Albumin 3.1 g/dL (3.9-5) L 07/04/22 00: Albumin/Globulin Ratio 1.1 % 07/04/22: Triglycerides 53 mg/dL (2-149) 07/04/22 00: Cholesterol 145 mg/dL (50-199) 07/04/22 00: LDL Cholesterol Direct 70 mg/dL (50-130) 07/04/22 00: HDL Cholesterol 58 mg/dL (40-59) 07/04/22: Cholesterol/HDL Ratio 2.50 % 07/04/22 00: TSH 4.320 mlU/mL (0.270-4.200) H 07/04/22 00: Hepatitis A IgM Ab Non-reactive (NonReactive) 07/04/22:27 Hep Bs Antigen Non-reactive (Negative) 07/04/22 00:27 Hep B Core IgM Ab Non-reactive (NonReactive) 07/04/22 00:27 Hepatitis C Antibody Non-reactive (NonReactive) 07/04/22 00:27 Last Vital Signs Temp 97.4 F L 07/05/22 09:03 Pulse 92 H 07/05/22 09:03 Resp 18 07/05/22 09:03 BP 158/85 07/05/22 09:03 Pulse Ox 99 07/05/22 09:03
[2022-07-06] MEDS: LISINOPRIL 20 MG TAB PO SCH (12:05)
[2022-07-06] MEDS: amLODIPine 10 MG TAB PO SCH (12:06)
--- NOTE | 2022-07-06 19:59 | Progress Note ---
Assessment and Plan Assessment and Plan - Patient Problems (1) Vascular dementia with behavioral disturbance Current Visit: Yes Status: Acute Plan to address problem: For vomiting, verbal redirection, benzodiazepine therapy as clinically indicated. (2) Cerebral atherosclerosis Current Visit: Yes Status: Acute Plan to address problem: Risk factor reduction, antiplatelet therapy as clinically indicated, supportive care (3) Hypertension Current Visit: Yes Status: Acute Qualifiers: Hypertension type: primary hypertension Qualified Code(s): I10 - Essential (primary) hypertension Plan to address problem: Monitor blood pressure every shift, continue medical management. (4) Hyperlipidemia Current Visit: Yes Status: Acute Qualifiers: Hyperlipidemia type: mixed hyperlipidemia Qualified Code(s): E78.2 - Mixed hyperlipidemia Plan to address problem: Statin therapy, low-cholesterol diet, risk factor reduction. (5) Obesity hypoventilation syndrome Current Visit: Yes Status: Acute Plan to address problem: Weight reduction, outpatient pulmonary follow-up for sleep study. (6) Bipolar disorder Current Visit: Yes Status: Acute Plan to address problem: Continue medical management, supportive care. (7) Schizophrenia Current Visit: Yes Status: Acute Plan to address problem: Continue medical management, supportive care. (8) Major depression Current Visit: Yes Status: Acute Plan to address problem: Continue medical management, supportive care. (9) Advance care planning Current Visit: Yes Status: Acute Plan to address problem: Disease education done, care plan discussed, diagnoses discussed, prognosis discussed, patient is full code. Patient knowledges understanding and agreement with care plan, +30 minutes. (10) Preventative health care Current Visit: Yes Status: Acute Plan to address problem: Patient counseled regarding weight reduction, increase physical activity discharge, outpatient follow-up with primary care physician for all age and risk factor appropriate screening test. Outpatient follow-up with [facility]EN[facility] ATTENDANT service for all age and risk factor related screening test. +30 minutes. Subjective Date of service: 07/06/22 Principal diagnosis: Vascular dementia with behavioral disturbance Interval history: History Interval history: 62 YO Female with Vascular Dementia with behavioral disturbance, Cerebral Athe rosclerosis, HTN, HLD, Obesity Hypoventilation Syndrome, GERD, Schizophrenia, Bipolar Disorder admitted to [facility] for psychiatric stabilization. Patient seen and evaluated in patient room. Patient appears to be at baseline level of cognition and function. No reported nursing events. Objective - Constitutional Vitals: Vital Signs - 12hr 07/06/22 07/06/22 12:05 12:06 Pulse Rate 102 H 102 H Blood Pressure 157/84 157/84 General appearance: Present: no acute distress, well-nourished - EENT Eyes: PERRL, EOM intact ENT: hearing intact, clear oral mucosa Ears: bilateral: normal - Neck Neck: supple, normal ROM - Respiratory Respiratory effort: normal Respiratory: bilateral: CTA - Breasts Breasts: normal - Cardiovascular Heart rate: 78 Rhythm: regular Heart Sounds: Present: S1 & S2. Absent: gallop, rub Extremities: pulses intact, No edema, normal color, Full ROM - Gastrointestinal General gastrointestinal: Present: soft, non-tender, non-distended, normal bowel sounds - Genitourinary Female genitourinary: normal - Integumentary Integumentary: clear, warm, dry - Musculoskeletal Musculoskeletal: 1, strength equal bilaterally - Neurologic Neurologic: moves all extremities - Psychiatric Psychiatric: memory intact, appropriate mood/affect, intact judgment & insight - Labs CBC & Chem 7: 07/04/22 00:27 07/04/22 00:27 Labs: Abnormal lab results 07/06/22 Range/Units 11:28 POC Glucose 135 H (70-105) mg/dL
[2022-07-06] MEDS: traZODone 100 MG TAB PO SCH (21:02)
[2022-07-06] MEDS: traZODone 50 MG TAB PO SCH (21:02)
[2022-07-06] MEDS: DIVALPROEX DR 500 MG TAB PO SCH (21:03)
[2022-07-07] MEDS: PANTOPRAZOLE 40 MG TAB PO SCH (09:25)
[2022-07-07] MEDS: PARoxetine 20 MG TAB PO SCH (09:25)
[2022-07-07] MEDS: CETIRIZINE 10 MG TAB PO SCH (09:26)
[2022-07-07] MEDS: BENZTROPINE 2 MG TAB PO SCH (09:26)
[2022-07-07] MEDS: DIVALPROEX DR 250 MG TAB PO SCH (09:26)
[2022-07-07] MEDS: HALOPERIDOL 2 MG TAB PO SCH ×2 (09:26→21:07)
--- NOTE | 2022-07-07 09:38 | Progress Note ---
Subjective Date of service: 07/07/22 Principal diagnosis: Vascular dementia with behavioral disturbance Subjective Comment: 07/07:The patient was seen today. She states she is doing well;responds to internal stimuli. Unable to assess SI/HI 07/06: The patient was seen today. She continues to have intermittent outbursts and responding to internal stimuli. She states she is doing well. Unable to assess SI/HI 07/05: The patient was seen at breakfast. She is confused and was observed responding to internal stimuli. She reports sleep and appetite as good. REVIEW OF SYSTEMS Unable to obtain MENTAL STATUS Unable to obtain Diagnoses: Schizophrenia Treatment Plan Patient will be admitted for inpatient psychiatric evaluation, medication adjustment and close monitoring The patient's behavior, mood, sleep and appetite will be closely monitored. Patient will be enrolled in individual and group therapeutic sessions and enc ouraged to attend. Patient will be provided with a safe and structured environment. Patient's physical health needs will be addressed by the Hospitalist. Hospitalist Consulted Labs including CBC, CMP, Lipid profile and Hemoglobin A1C ordered Social Assessment will be completed and the Inspector [place] will work with patient and family to ensure a suitable and safe disposition Medication adjustment will be made as clinically indicated Restarted home meds Usual Wellness Restorationism/Preservation: The patient agreed on the treatment plan, understood the risk, benefit, al ternative treatment, potential consequence of no treatment, and gave informed consent. LOS 7 days Case staffed with Dr. Alex Legal Status: Voluntary Reaction to Hospitalization: Accepting Medications and Allergies Medications and Allergies Allergies Allergy/AdvReac Type Severity Reaction Status Date / Time lithium Allergy Unknown Verified 07/03/22 22:46 Home Medications Medication Instructions Recorded Confirmed Last Taken Type amLODIPine [Norvasc] 10 mg PO DAILY 08/25/13 07/04/22 Unknown History AtorvaSTATin [Lipitor] 10 mg PO QHS 07/04/22 07/04/22 Unknown History Benztropine [Cogentin] 2 mg PO DAILY 07/04/22 07/04/22 Unknown History Divalproex [Ray Aponte] 250 mg PO DAILY 07/04/22 07/04/22 Unknown History Divalproex [Ray Aponte] 500 mg PO HS 07/04/22 07/04/22 Unknown History Loratadine [Claritin] 10 mg PO DAILY 07/04/22 07/04/22 Unknown History Metoprolol Xl [Metoprolol 50 mg PO DAILY 07/04/22 07/04/22 Unknown History SUCCINATE ER TAB] PARoxetine [Paxil] 20 mg PO DAILY 07/04/22 07/04/22 Unknown History Pantoprazole [Protonix TAB] 40 mg PO DAILY 07/04/22 07/04/22 Unknown History Trazodone HCl 150 mg PO HS 07/04/22 07/04/22 Unknown History Ziprasidone [Geodon] 20 mg PO DAILY 07/04/22 07/04/22 Unknown History haloperidoL [Haldol] 2 mg PO BID 07/04/22 07/04/22 Unknown History lisinopriL [Lisinopril] 20 mg PO DAILY 07/04/22 07/04/22 Unknown History Active Meds: Active Medications Amlodipine Besylate (Amlodipine 10 Mg Tab) 10 mg PO DAILY [facility] Last Admin: 07/06/22 12:06 Dose: 10 mg Atorvastatin Calcium (Atorvastatin 10 Mg Tab) 10 mg PO QHS [facility] Last Admin: 07/06/22 21:03 Dose: 10 mg Benztropine Mesylate (Benztropine 2 Mg Tab) 2 mg PO DAILY [facility] Last Admin: 07/07/22 09:26 Dose: 2 mg Cetirizine HCl (Cetirizine 10 Mg Tab) 10 mg PO DAILY [facility] Last Admin: 07/07/22 09:26 Dose: 10 mg Divalproex Sodium (Divalproex Dr 250 Mg Tab) 250 mg PO DAILY [facility] Last Admin: 07/07/22 09:26 Dose: 250 mg Divalproex Sodium (Divalproex Dr 500 Mg Tab) 500 mg PO [facility] Last Admin: 07/06/22 21:03 Dose: 500 mg Haloperidol (Haloperidol 2 Mg Tab) 2 mg PO BID [facility] Last Admin: 07/07/22 09:26 Dose: 2 mg Lisinopril (Lisinopril 20 Mg Tab) 20 mg PO DAILY [facility] Last Admin: 07/06/22 12:05 Dose: 20 mg Pantoprazole Sodium (Pantoprazole 40 Mg Tab) 40 mg PO DAILY [facility] Last Admin: 07/07/22 09:25 Dose: 40 mg Paroxetine HCl (Paroxetine 20 Mg Tab) 20 mg PO DAILY [facility] Last Admin: 07/07/22 09:25 Dose: 20 mg Trazodone HCl (Trazodone 100 Mg Tab) 100 mg PO QHS [facility] Last Admin: 07/06/22 21:02 Dose: 100 mg Trazodone HCl (Trazodone 50 Mg Tab) 50 mg PO QHS [facility] Last Admin: 07/06/22 21:02 Dose: 50 mg Results - Results Labs/Vitals: Laboratory Last Values WBC 9.7 K/mm3 (4.5-11.0) 07/04/22 00:27 RBC 3.62 M/mm3 (3.65-5.03) L 07/04/22 00:27 Hgb 10.3 gm/dl (10.1-14.3) 07/04/22 00:27 Hct 31.1 % (30.3-42.9) 07/04/22 00:27 MCV 86 fl (79-97) 07/04/22 00:27 MCH 28 pg (28-32) 07/04/22 00:27 MCHC 33 % (30-34) 07/04/22 00:27 RDW 15.2 % (13.2-15.2) 07/04/22 00:27 Plt Count 261 K/mm3 (140-440) 07/04/22 00:27 Lymph % (Auto) 20.8 % (13.4-35.0) 07/04/22 00:27 [place] % (Auto) 10.9 % (0.0-7.3) H 07/04/22 00:27 Eos % (Auto) 2.9 % (0.0-4.3) 07/04/22 00:27 Baso % (Auto) 0.5 % (0.0-1.8) 07/04/22 00:27 Lymph # (Auto) 2.0 K/mm3 (1.2-5.4) 07/04/22 00:27 [place] # (Auto) 1.1 K/mm3 (0.0-0.8) H 07/04/22 00:27 Eos # (Auto) 0.3 K/mm3 (0.0-0.4) 07/04/22 00:27 Baso # (Auto) 0.1 K/mm3 (0.0-0.1) 07/04/22 00:27 Seg Neutrophils % 64.9 % (40.0-70.0) 07/04/22 00:27 Seg Neutrophils # 6.3 K/mm3 (1.8-7.7) 07/04/22 00:27 Sodium 135 mmol/L (137-145) L 07/04/22 00:27 Potassium 4.3 mmol/L (3.6-5.0) 07/04/22 00:27 Chloride 100.1 mmol/L (98-107) 07/04/22 00:27 Carbon Dioxide 25 mmol/L (22-30) 07/04/22 00:27 Anion Gap 14 mmol/L 07/04/22 00:27 BUN 18 mg/dL (7-17) H 07/04/22 00:27 Creatinine 0.7 mg/dL (0.6-1.2) 07/04/22 00:27 Estimated GFR > 60 ml/min 07/04/22 00:27 BUN/Creatinine Ratio 26 % 07/04/22 00:27 Glucose 128 mg/dL (65-100) H 07/04/22 00:27 POC Glucose 135 mg/dL (70-105) H 07/06/22 11:28 Hemoglobin A1c 6.2 % (4-6) H 07/04/22 00:27 Calcium 8.6 mg/dL (8.4-10.2) 07/04/22 00:27 Total Bilirubin 0.20 mg/dL (0.1-1.2) 07/04/22 00:27 AST 12 units/L (5-40) 07/04/22 00:27 ALT 9 units/L (7-56) 07/04/22 00:27 Alkaline Phosphatase 55 units/L (35-129) 07/04/22 00:27 Total Protein 6.0 g/dL (6.3-8.2) L 07/04/22 00:27 Albumin 3.1 g/dL (3.9-5) L 07/04/22 00:27 Albumin/Globulin Ratio 1.1 % 07/04/22 00:27 Triglycerides 53 mg/dL (2-149) 07/04/22 00:27 Cholesterol 145 mg/dL (50-199) 07/04/22 00:27 LDL Cholesterol Direct 70 mg/dL (50-130) 07/04/22 00:27 HDL Cholesterol 58 mg/dL (40-59) 07/04/22 00:27 Cholesterol/HDL Ratio 2.50 % 07/04/22 00:27 TSH 4.320 mlU/mL (0.270-4.200) H 07/04/22 00:27 Hepatitis A IgM Ab Non-reactive (NonReactive) 07/04/22 00:27 Hep Bs Antigen Non-reactive (Negative) 07/04/22 00:27 Hep B Core IgM Ab Non-reactive (NonReactive) 07/04/22 00:27 Hepatitis C Antibody Non-reactive (NonReactive) 07/04/22 00:27 Last Vital Signs Temp 97.4 F L 07/05/22 09:03 Pulse 102 H 07/06/22 12:06 Resp 18 07/05/22 09:03 BP 157/84 07/06/22 12:06 Pulse Ox 99 07/05/22 09:03
[2022-07-07] MEDS: amLODIPine 10 MG TAB PO SCH (10:28)
[2022-07-07] MEDS: LISINOPRIL 20 MG TAB PO SCH (10:29)
[2022-07-07] MEDS: traZODone 100 MG TAB PO SCH (21:07)
[2022-07-07] MEDS: traZODone 50 MG TAB PO SCH (21:07)
[2022-07-07] MEDS: DIVALPROEX DR 500 MG TAB PO SCH (21:07)
--- NOTE | 2022-07-08 09:35 | Progress Note ---
Subjective Date of service: 07/08/22 Principal diagnosis: Vascular dementia with behavioral disturbance Subjective Comment: 07/08:The patient was seen today. She states she is doing well; continues to intermittently respond to internal stimuli. 07/07:The patient was seen today. She states she is doing well;responds to internal stimuli. Unable to assess SI/HI 07/06: The patient was seen today. She continues to have intermittent outbursts and responding to internal stimuli. She states she is doing well. Unable to assess SI/HI 07/05: The patient was seen at breakfast. She is confused and was observed responding to internal stimuli. She reports sleep and appetite as good. REVIEW OF SYSTEMS Unable to obtain MENTAL STATUS Unable to obtain Diagnoses: Schizophrenia Treatment Plan Patient will be admitted for inpatient psychiatric evaluation, medication adjustment and close monitoring The patient's behavior, mood, sleep and appetite will be closely monitored. Patient will be enrolled in individual and group therapeutic sessions and encouraged to attend. Patient will be provided with a safe and structured environment. Patient's physical health needs will be addressed by the Hospitalist. Hospitalist Consulted Labs including CBC, CMP, Lipid profile and Hemoglobin A1C ordered Social Assessment will be completed and the Line Up Machine Operator will work with patient and family to ensure a suitable and safe disposition Medication adjustment will be made as clinically indicated Restarted home meds Usual Wellness Judaism/Preservation: The patient agreed on the treatment plan, understood the risk, benefit, alternative treatment, potential consequence of no treatment, and gave informed consent. LOS 7 days Case staffed with Dr. Alex Legal Status: Voluntary Reaction to Hospitalization: Accepting Medications and Allergies Medications and Allergies Allergies Allergy/AdvReac Type Severity Reaction Status Date / Time lithium Allergy Unknown Verified 07/03/22 22:46 Home Medications Medication Instructions Recorded Confirmed Last Taken Type amLODIPine [Norvasc] 10 mg PO DAILY 08/25/13 07/04/22 Unknown History AtorvaSTATin [Lipitor] 10 mg PO QHS 07/04/22 07/04/22 Unknown History Benztropine [Cogentin] 2 mg PO DAILY 07/04/22 07/04/22 Unknown History Divalproex [Ray Aponte] 250 mg PO DAILY 07/04/22 07/04/22 Unknown History Divalproex [Ray Aponte] 500 mg PO HS 07/04/22 07/04/22 Unknown History Loratadine [Claritin] 10 mg PO DAILY 07/04/22 07/04/22 Unknown History Metoprolol Xl [Metoprolol 50 mg PO DAILY 07/04/22 07/04/22 Unknown History SUCCINATE ER TAB] PARoxetine [Paxil] 20 mg PO DAILY 07/04/22 07/04/22 Unknown History Pantoprazole [Protonix TAB] 40 mg PO DAILY 07/04/22 07/04/22 Unknown History Trazodone HCl 150 mg PO HS 07/04/22 07/04/22 Unknown History Ziprasidone [Geodon] 20 mg PO DAILY 07/04/22 07/04/22 Unknown History haloperidoL [Haldol] 2 mg PO BID 07/04/22 07/04/22 Unknown History lisinopriL [Lisinopril] 20 mg PO DAILY 07/04/22 07/04/22 Unknown History Active Meds: Active Medications Amlodipine Besylate (Amlodipine 10 Mg Tab) 10 mg PO DAILY [facility] Last Admin: 07/07/22 10:28 Dose: 10 mg Atorvastatin Calcium (Atorvastatin 10 Mg Tab) 10 mg PO QHS [facility] Last Admin: 07/07/22 21:07 Dose: 10 mg Benztropine Mesylate (Benztropine 2 Mg Tab) 2 mg PO DAILY [facility] Last Admin: 07/07/22 09:26 Dose: 2 mg Cetirizine HCl (Cetirizine 10 Mg Tab) 10 mg PO DAILY [facility] Last Admin: 07/07/22 09:26 Dose: 10 mg Divalproex Sodium (Divalproex Dr 250 Mg Tab) 250 mg PO DAILY [facility] Last Admin: 07/07/22 09:26 Dose: 250 mg Divalproex Sodium (Divalproex Dr 500 Mg Tab) 500 mg PO [facility] Last Admin: 07/07/22 21:07 Dose: 500 mg Haloperidol (Haloperidol 2 Mg Tab) 2 mg PO BID [facility] Last Admin: 07/07/22 21:07 Dose: 2 mg Lisinopril (Lisinopril 20 Mg Tab) 20 mg PO DAILY [facility] Last Admin: 07/07/22 10:29 Dose: 20 mg Pantoprazole Sodium (Pantoprazole 40 Mg Tab) 40 mg PO DAILY [facility] Last Admin: 07/07/22 09:25 Dose: 40 mg Paroxetine HCl (Paroxetine 20 Mg Tab) 20 mg PO DAILY [facility] Last Admin: 07/07/22 09:25 Dose: 20 mg Trazodone HCl (Trazodone 100 Mg Tab) 100 mg PO QHS [facility] Last Admin: 07/07/22 21:07 Dose: 100 mg Trazodone HCl (Trazodone 50 Mg Tab) 50 mg PO QHS [facility] Last Admin: 07/07/22 21:07 Dose: 50 mg Results - Results Labs/Vitals: Laboratory Last Values WBC 9.7 K/mm3 (4.5-11.0) 07/04/22 00:27 RBC 3.62 M/mm3 (3.65-5.03) L 07/04/22 00:27 Hgb 10.3 gm/dl (10.1-14.3) 07/04/22 00:27 Hct 31.1 % (30.3-42.9) 07/04/22 00:27 MCV 86 fl (79-97) 07/04/22 00:27 MCH 28 pg (28-32) 07/04/22 00:27 MCHC 33 % (30-34) 07/04/22 00:27 RDW 15.2 % (13.2-15.2) 07/04/22 00:27 Plt Count 261 K/mm3 (140-440) 07/04/22 00:27 Lymph % (Auto) 20.8 % (13.4-35.0) 07/04/22 00:27 [place] % (Auto) 10.9 % (0.0-7.3) H 07/04/22 00:27 Eos % (Auto) 2.9 % (0.0-4.3) 07/04/22 00:27 Baso % (Auto) 0.5 % (0.0-1.8) 07/04/22 00:27 Lymph # (Auto) 2.0 K/mm3 (1.2-5.4) 07/04/22 00:27 [place] # (Auto) 1.1 K/mm3 (0.0-0.8) H 07/04/22 00:27 Eos # (Auto) 0.3 K/mm3 (0.0-0.4) 07/04/22 00:27 Baso # (Auto) 0.1 K/mm3 (0.0-0.1) 07/04/22 00:27 Seg Neutrophils % 64.9 % (40.0-70.0) 07/04/22 00:27 Seg Neutrophils # 6.3 K/mm3 (1.8-7.7) 07/04/22 00:27 Sodium 135 mmol/L (137-145) L 07/04/22 00:27 Potassium 4.3 mmol/L (3.6-5.0) 07/04/22 00:27 Chloride 100.1 mmol/L (98-107) 07/04/22 00:27 Carbon Dioxide 25 mmol/L (22-30) 07/04/22 00:27 Anion Gap 14 mmol/L 07/04/22 00:27 BUN 18 mg/dL (7-17) H 07/04/22 00:27 Creatinine 0.7 mg/dL (0.6-1.2) 07/04/22 00:27 Estimated GFR > 60 ml/min 07/04/22 00:27 BUN/Creatinine Ratio 26 % 07/04/22 00:27 Glucose 128 mg/dL (65-100) H 07/04/22 00:27 POC Glucose 135 mg/dL (70-105) H 07/06/22 11:28 Hemoglobin A1c 6.2 % (4-6) H 07/04/22 00:27 Calcium 8.6 mg/dL (8.4-10.2) 07/04/22 00:27 Total Bilirubin 0.20 mg/dL (0.1-1.2) 07/04/22 00:27 AST 12 units/L (5-40) 07/04/22 00:27 ALT 9 units/L (7-56) 07/04/22 00:27 Alkaline Phosphatase 55 units/L (35-129) 07/04/22 00:27 Total Protein 6.0 g/dL (6.3-8.2) L 07/04/22 00:27 Albumin 3.1 g/dL (3.9-5) L 07/04/22 00:27 Albumin/Globulin Ratio 1.1 % 07/04/22 00:27 Triglycerides 53 mg/dL (2-149) 07/04/22 00:27 Cholesterol 145 mg/dL (50-199) 07/04/22 00:27 LDL Cholesterol Direct 70 mg/dL (50-130) 07/04/22 00:27 HDL Cholesterol 58 mg/dL (40-59) 07/04/22 00:27 Cholesterol/HDL Ratio 2.50 % 07/04/22 00:27 TSH 4.320 mlU/mL (0.270-4.200) H 07/04/22 00:27 Hepatitis A IgM Ab Non-reactive (NonReactive) 07/04/22 00:27 Hep Bs Antigen Non-reactive (Negative) 07/04/22 00:27 Hep B Core IgM Ab Non-reactive (NonReactive) 07/04/22 00:27 Hepatitis C Antibody Non-reactive (NonReactive) 07/04/22 00:27 Last Vital Signs Temp 98.7 F 07/08/22 08:47 Pulse 105 H 07/08/22 08:47 Resp 16 07/08/22 08:47 BP 191/80 07/08/22 08:47 Pulse Ox 98 07/08/22 08:47
[2022-07-08] MEDS: DIVALPROEX DR 250 MG TAB PO SCH (10:09)
[2022-07-08] MEDS: PANTOPRAZOLE 40 MG TAB PO SCH (10:09)
[2022-07-08] MEDS: HALOPERIDOL 2 MG TAB PO SCH ×2 (10:09→21:07)
[2022-07-08] MEDS: amLODIPine 10 MG TAB PO SCH (10:09)
[2022-07-08] MEDS: BENZTROPINE 2 MG TAB PO SCH (10:10)
[2022-07-08] MEDS: LISINOPRIL 20 MG TAB PO SCH (10:10)
[2022-07-08] MEDS: PARoxetine 20 MG TAB PO SCH (10:10)
[2022-07-08] MEDS: CETIRIZINE 10 MG TAB PO SCH (10:26)
[2022-07-08] MEDS: traZODone 100 MG TAB PO SCH (21:06)
[2022-07-08] MEDS: traZODone 50 MG TAB PO SCH (21:07)
[2022-07-08] MEDS: DIVALPROEX DR 500 MG TAB PO SCH (21:07)
--- NOTE | 2022-07-09 08:27 | Progress Note ---
Assessment and Plan Assessment and Plan - Patient Problems (1) Vascular dementia with behavioral disturbance Current Visit: Yes Status: Acute Plan to address problem: For vomiting, verbal redirection, benzodiazepine therapy as clinically indicated. (2) Cerebral atherosclerosis Current Visit: Yes Status: Acute Plan to address problem: Risk factor reduction, antiplatelet therapy as clinically indicated, supportive care (3) Hypertension Current Visit: Yes Status: Acute Qualifiers: Hypertension type: primary hypertension Qualified Code(s): I10 - Essential (primary) hypertension Plan to address problem: Monitor blood pressure every shift, continue medical management. (4) Hyperlipidemia Current Visit: Yes Status: Acute Qualifiers: Hyperlipidemia type: mixed hyperlipidemia Qualified Code(s): E78.2 - Mixed hyperlipidemia Plan to address problem: Statin therapy, low-cholesterol diet, risk factor reduction. (5) Obesity hypoventilation syndrome Current Visit: Yes Status: Acute Plan to address problem: Weight reduction, outpatient pulmonary follow-up for sleep study. (6) Bipolar disorder Current Visit: Yes Status: Acute Plan to address problem: Continue medical management, supportive care. (7) Schizophrenia Current Visit: Yes Status: Acute Plan to address problem: Continue medical management, supportive care. (8) Major depression Current Visit: Yes Status: Acute Plan to address problem: Continue medical management, supportive care. (9) Advance care planning Current Visit: Yes Status: Acute Plan to address problem: Disease education done, care plan discussed, diagnoses discussed, prognosis discussed, patient is full code. Patient knowledges understanding and agreement with care plan, +30 minutes. (10) Preventative health care Current Visit: Yes Status: Acute Plan to address problem: Patient counseled regarding weight reduction, increase physical activity discharge, outpatient follow-up with primary care physician for all age and risk factor appropriate screening test. Outpatient follow-up with SEWING MACHINE OPERATOR [employer] service for all age and risk factor related screening test. +30 minutes. Subjective Date of service: 07/08/22 Principal diagnosis: Vascular dementia with behavioral disturbance Interval history: History Interval history: 62 YO Female with Vascular Dementia with behavioral disturbance, Cerebral Athe rosclerosis, HTN, HLD, Obesity Hypoventilation Syndrome, GERD, Schizophrenia, Bipolar Disorder admitted to [facility] for psychiatric stabilization. Patient seen and evaluated in patient room. Patient appears to be at baseline level of cognition and function. No reported nursing events. Objective - Constitutional General appearance: Present: no acute distress, well-nourished - EENT Eyes: PERRL, EOM intact ENT: hearing intact, clear oral mucosa Ears: bilateral: normal - Neck Neck: supple, normal ROM - Respiratory Respiratory effort: normal Respiratory: bilateral: CTA - Breasts Breasts: normal - Cardiovascular Heart rate: 78 Rhythm: regular Heart Sounds: Present: S1 & S2. Absent: gallop, rub Extremities: pulses intact, No edema, normal color, Full ROM - Gastrointestinal General gastrointestinal: Present: soft, non-tender, non-distended, normal bowel sounds - Genitourinary Female genitourinary: normal - Integumentary Integumentary: clear, warm, dry - Musculoskeletal Musculoskeletal: 1, strength equal bilaterally - Neurologic Neurologic: moves all extremities - Psychiatric Psychiatric: memory intact, appropriate mood/affect, intact judgment & insight - Labs CBC & Chem 7: 07/04/22 00:27 07/04/22 00:27
--- NOTE | 2022-07-09 09:24 | Discharge Summary ---
Providers - Providers Date of Admission: 07/03/22 23:24 Date of discharge: 07/09/22 Attending physician: LAURI BELTRAN MD 07/03/22 22:36 Consult to Physician [CONS] Routine Comment: Consulting Provider: NIKO SORTO Physician Instructions: Reason For Exam: management of medical problems Primary care physician: [employer] Hospitalization Reason for admission: hallucinations Admitting Diagnosis: F31.2 - BIPOLAR DISORD, CRNT EPISODE MANIC SEVERE W PSYCH FEATURES Condition: Stable Hospital course: The patient was provided inpatient psychiatric treatment with safe and supportive environment, group/individual therapy, psychiatric medication, medication adjustment, adverse effect monitor, medical evaluation, medical treatment, social service assessment, social support meeting, placement assessment and psycho-education. The patients mood, cognition, behavior, motivation, compliance to treatment and appreciation on family/social support are improved and stabilized. At the time of discharge, the patient had no suicidal ideas, no homicidal ideas, no aggressive thoughts, no endangering behavior and no debilitating adverse effects. The patient agreed on the treatment plan, understood the risk, benefit, alternative treatment, potential consequence of no treatment, and gave informed consent. Progress Note: 07/08:The patient was seen today. She states she is doing well; continues to intermittently respond to internal stimuli. 07/07:The patient was seen today. She states she is doing well;responds to internal stimuli. Unable to assess SI/HI 07/06: The patient was seen today. She continues to have intermittent outbursts and responding to internal stimuli. She states she is doing well. Unable to assess SI/HI 07/05: The patient was seen at breakfast. She is confused and was observed responding to internal stimuli. She reports sleep and appetite as good. Disposition: 30 STILL A PATIENT Allergies/Adverse Reactions: Allergies lithium Allergy (Verified 07/03/22 22:46) Unknown Vital Signs: Last Vital Signs Temp 98.8 F 07/08/22 19:27 Pulse 98 H 07/08/22 19:27 Resp 18 07/08/22 19:27 BP 143/95 07/08/22 19:27 Pulse Ox 94 07/08/22 19:27 Last Lab: Laboratory Last Values WBC 9.7 K/mm3 (4.5-11.0) 07/04/22 00:27 RBC 3.62 M/mm3 (3.65-5.03) L 07/04/22 00:27 Hgb 10.3 gm/dl (10.1-14.3) 07/04/22 00:27 Hct 31.1 % (30.3-42.9) 07/04/22 00: MCV 86 fl (79-97) 07/04/22 00: MCH 28 pg (28-32) 07/04/22: MCHC 33 % (30-34) 07/04/22 00: RDW 15.2 % (13.2-15.2) 07/04/22 00:27 Plt Count 261 K/mm3 (140-440) 07/04/22 00: Lymph % (Auto) 20.8 % (13.4-35.0) 07/04/22 00: [place] % (Auto) 10.9 % (0.0-7.3) H 07/04/22 00: Eos % (Auto) 2.9 % (0.0-4.3) 07/04/22 00: Baso % (Auto) 0.5 % (0.0-1.8) 07/04/22 00:27 Lymph # (Auto) 2.0 K/mm3 (1.2-5.4) 07/04/22 00:27 [place] # (Auto) 1.1 K/mm3 (0.0-0.8) H 07/04/22 00:27 Eos # (Auto) 0.3 K/mm3 (0.0-0.4) 07/04/22 00: Baso # (Auto) 0.1 K/mm3 (0.0-0.1) 07/04/22 00: Seg Neutrophils % 64.9 % (40.0-70.0) 07/04/22 00: Seg Neutrophils # 6.3 K/mm3 (1.8-7.7) 07/04/22 00: Sodium 135 mmol/L (137-145) L 07/04/22 00: Potassium 4.3 mmol/L (3.6-5.0) 07/04/22 00: Chloride 100.1 mmol/L (98-107) 07/04/22 00: Carbon Dioxide 25 mmol/L (22-30) 07/04/22 00:27 Anion Gap 14 mmol/L 07/04/22 00:27 BUN 18 mg/dL (7-17) H 07/04/22 00:27 Creatinine 0.7 mg/dL (0.6-1.2) 07/04/22 00:27 Estimated GFR > 60 ml/min 07/04/22 00:27 BUN/Creatinine Ratio 26 % 07/04/22 00:27 Glucose 128 mg/dL (65-100) H 07/04/22 00:27 POC Glucose 135 mg/dL (70-105) H 07/06/22 11:28 Hemoglobin A1c 6.2 % (4-6) H 07/04/22 00:27 Calcium 8.6 mg/dL (8.4-10.2) 07/04/22 00:27 Total Bilirubin 0.20 mg/dL (0.1-1.2) 07/04/22 00:27 AST 12 units/L (5-40) 07/04/22 00: ALT 9 units/L (7-56) 07/04/22 00:27 Alkaline Phosphatase 55 units/L (35-129) 07/04/22 00:27 Total Protein 6.0 g/dL (6.3-8.2) L 07/04/22 00:27 Albumin 3.1 g/dL (3.9-5) L 07/04/22 00: Albumin/Globulin Ratio 1.1 % 07/04/22 00: Triglycerides 53 mg/dL (2-149) 07/04/22 00: Cholesterol 145 mg/dL (50-199) 07/04/22 00:27 LDL Cholesterol Direct 70 mg/dL (50-130) 07/04/22 00:27 HDL Cholesterol 58 mg/dL (40-59) 07/04/22 00: Cholesterol/HDL Ratio 2.50 % 07/04/22 00:27 TSH 4.320 mlU/mL (0.270-4.200) H 07/04/22 00:27 Hepatitis A IgM Ab Non-reactive (NonReactive) 07/04/22 00: Hep Bs Antigen Non-reactive (Negative) 07/04/22 00: Hep B Core IgM Ab Non-reactive (NonReactive) 07/04/22 00: Hepatitis C Antibody Non-reactive (NonReactive) 07/04/22 00:27 Core Measure Documentation - Palliative Care Palliative Care/ Comfort Measures: Not Applicable - Core Measures Any of the following diagnoses?: none - VTE Discharge Requirements Deep Vein Thrombosis/Pulmonary Embolism Present on Admission: No Exam - Constitutional Vitals: Temp Pulse Resp BP Pulse Ox 98.8 F 98 H 18 143/95 94 07/08/22 19:27 07/08/22 19:27 07/08/22 19:27 07/08/22 19:27 07/08/22 19:27 Plan Activity: advance as tolerated Weight Bearing Status: Weight Bear as Tolerated Diet: regular Care Plan Goals: Maintain good and stable mental health. Plan of Treatment: The patient should be compliant with medications, not to use drugs and not to drink alcohol.The patient understands that if suicidal ideas, homicidal ideas, or any endangering thoughts/behavior arise, they should immediately seek for emergent assistance including but not limited to crisis hot line and emergency room. Follow up with outpatient Psychiatrist and PCP within 7 - 14 days of discharge. Follow up with: PRIMARY CARE, [Primary Care Provider] - 7 Days Prescriptions: Benztropine [Cogentin] 2 mg PO DAILY 30 Days #30 Divalproex [Ray [place]] 500 mg PO HS 30 Days #30 tablet Divalproex [Ray Ap[place]] 250 mg PO DAILY 30 Days #30 haloperidoL [Haldol] 2 mg PO BID 30 Days #60 PARoxetine [Paxil] 20 mg PO DAILY 30 Days #30 Trazodone HCl 150 mg PO HS 30 Days #30
[2022-07-09] MEDS: LISINOPRIL 20 MG TAB PO SCH (10:05)
[2022-07-09] MEDS: HALOPERIDOL 2 MG TAB PO SCH (10:05)
[2022-07-09] MEDS: DIVALPROEX DR 250 MG TAB PO SCH (10:05)
[2022-07-09] MEDS: PANTOPRAZOLE 40 MG TAB PO SCH (10:05)
[2022-07-09] MEDS: amLODIPine 10 MG TAB PO SCH (10:05)
[2022-07-09 10:06] VITALS: BP 179/85
[2022-07-09] MEDS: CETIRIZINE 10 MG TAB PO SCH (10:06)
[2022-07-09] MEDS: BENZTROPINE 2 MG TAB PO SCH (10:06)
[2022-07-09] MEDS: PARoxetine 20 MG TAB PO SCH (10:06)
== END 2022-07-09 12:44 | disposition home or self-care (01) | DRG 885 ==
LOC: 3A 17:55 → UNDOADMIN 17:55 → 5A 23:24
PROVIDERS: ADMIT Psychiatry & Neurology Psychiatry; ATTEND Psychiatry & Neurology Psychiatry
DX: F20.9 Schizophrenia, unspecified (principal); F01.51 Vascular dementia, unspecified severity, with behavioral disturbance; E66.2 Morbid (severe) obesity with alveolar hypoventilation; Z68.41 Body mass index [BMI] 40.0-44.9, adult; F31.9 Bipolar disorder, unspecified; K21.9 Gastro-esophageal reflux disease without esophagitis; I10 Essential (primary) hypertension; I67.2 Cerebral atherosclerosis; Z79.899 Other long term (current) drug therapy; E78.2 Mixed hyperlipidemia; Z83.3 Family history of diabetes mellitus; Z91.048 Other nonmedicinal substance allergy status; Z82.49 Family history of ischemic heart disease and other diseases of the circulatory system
CPT/HCPCS: 36415; 80053; 80061; 80074; 82962; 83036; 84443; 85025; G0378